=== PATIENT | female | born 1995 | race Caucasian/White ===

== ENCOUNTER 2021-12-05 20:38 | Emergency (ER) | payer MEDICAID, OTHER ==
[2021-12-05] MEDS ORDERED: Rabies Vaccine (Avian) 2.5 Unit Inj Kit IM ONE (20:43)
[2021-12-05] MEDS ORDERED: Diphtheria,Pertussis(Acell),Tetanus Vaccine 0.5 ML Syringe IM ONE (21:13)
[2021-12-05] MEDS ORDERED: Rabies Immune Globulin PF 150 Units/ML 10 ML SDV IM ONE (21:13)
[2021-12-05] MEDS ORDERED: traMADol 50 MG Tab PO ONE (21:15)
[2021-12-05] MEDS ORDERED: Lidocaine 1% 5 ML VIAL INJECT ONE (22:35)
[2021-12-05] MEDS ORDERED: Bacitracin Oint 1 GM U/D Packet TOP ONE (22:56)
== END 2021-12-05 23:23 | disposition home or self-care (01) ==
LOC: MW.ED 20:38
DX: S61.052A Open bite of left thumb without damage to nail, initial encounter (principal); Z23 Encounter for immunization; Z29.14 Encounter for prophylactic rabies immune globulin; W55.01XA Bitten by cat, initial encounter
CPT/HCPCS: 64450; 90375; 90471; 90675; 90715; 96372; 99283; A9270